=== PATIENT | male | born 1975 | race African-American/Black ===

== ENCOUNTER 2019-05-29 02:25 | Emergency (ER) | payer OTHER ==
[2019-05-29 02:34] VITALS: BP 143/95; PULSE 73; TEMP 98.2; BMI 26.4
[2019-05-29] MEDS ORDERED: IBUPROFEN 600 MG TABLET (FP) PO ONE ×2 (02:35→02:36)
--- NOTE | 2019-05-29 02:38 | PDOC ---
History of Present Illness - General Chief Complaint: Pain, Acute Stated Complaint: INJURY LEFT ANKLE WHILE WORKING Time Seen by Provider: 05/29/19 02:33 History Source: Patient Exam Limitations: No Limitations - History of Present Illness Initial Comments: 05/29/19 02:33 This is a 43-year-old male who comes in complaining of pain in his left ankle patient works as a security escort at [employer]. Patient said he was at work when he tripped and fell. Patient's complaining of pain in his left lateral ankle secondary to twisting the ankle. Allergies: as per nursing notes Past Medical History: none Social history: Lives with family. No smoking. No alcohol. No illicit drugs. Surgical history: None General: No fevers or chills, no weakness, no weight loss HEENT: No change in vision. No sore throat,. No ear pain CardioVascular: no chest discomfort. No shortness of breath Respiratory:No cough, or wheezing. Gastrointestinal: no nausea, vomiting, diarrhea or constipation, No rectal bleeding Genitourinary: No dysuria, hematuria, or frequency Musculoskeletal: Left ankle injury Neurologic: No headache, vertigo, dizziness or loss of consciousness Psychiatric: nor depression Skin: No rashes or easy bruising Endocrine: no increased thirst or abnormal weight change Allergic: no skin or latex allergy All other systems reviewed and normal GENERAL: The patient is awake, alert, and fully oriented, in no acute distress. HEAD: Normal with no signs of trauma. EYES: Pupils equal, round and reactive to light, extraocular movements intact, sclera anicteric, conjunctiva clear. EXTREMITIES: Left ankle: There is moderate swelling to the lateral and posterior portion of the ankle with tenderness on palpation of the lateral and posterior malleolus. there is no tenderness on palpation the base of the fifth metatarsal or any other bony structures of the foot. Neurovascular is intact. NEUROLOGICAL: Antalgic gait, normal speech PSYCH: Normal mood, normal affect. SKIN: Warm, Dry, normal turgor, no rashes or lesions noted. Assessment and plan: This 43-year-old male who comes in complaining of pain to his left ankle post twisting his ankle. X-ray did show a fracture of the posterior malleolus that was moderately displaced. Patient given posterior OCL splint, crutches and orthopedic follow-up. Patient discharged home. Past History - Past Medical History Allergies/Adverse Reactions: Allergies Allergy/AdvReac Type Severity Reaction Status Date / Time No Known Allergies Allergy Verified 05/29/19 02:27 Home Medications: Ambulatory Orders NK [No Known Home Medication] 05/29/19 COPD: No Other medical history: DENIES - Suicide/Smoking/Psychosocial Hx Smoking History: Never smoked Have you smoked in the past 12 months: No Information on smoking cessation initiated: No Hx Alcohol Use: No Drug/Substance Use Hx: No *Physical Exam - Vital Signs Last Vital Signs Temp Pulse Resp BP Pulse Ox 98.2 F 73 16 143/95 100 05/29/19 02:28 05/29/19 02:28 05/29/19 02:28 05/29/19 02:28 05/29/19 02:28 *DC/Admit/Observation/Transfer Diagnosis at time of Disposition: Fracture of posterior malleolus of left tibia Qualifiers: Encounter type: initial encounter Fracture type: closed Qualified Code(s): S82.392A - Other fracture of lower end of left tibia, initial encounter for closed fracture - Discharge Dispostion Disposition: HOME Condition at time of disposition: Stable Decision to Admit order: No - Referrals Referrals: Sadi Balderrama MD [Staff Physician] - - Patient Instructions Additional Instructions: Leave the splint on until you see the orthopedist. Keep it dry. Take ibuprofen or Aleve as needed for the pain and instructed on the bottle. Wear the [place] wrap keep it iced and elevated as much as possible. Call the orthopedist in the morning. And get an appointment Return to the emergency department immediately with ANY new, persistent or worsening symptoms. Continue any medications as previously prescribed by your physician. You should follow up with your primary doctor as soon as possible regarding today's emergency department visit. . Please make sure your doctor reviews the results of your emergency evaluation. Thank you for coming to the Emergency Department today for your care. It was a pleasure to see you today. Please note that your evaluation is INCOMPLETE until you follow-up with your doctor. - Post Discharge Activity Forms/Work/School Notes: Back to Work
== END 2019-05-29 03:15 | disposition home or self-care (01) ==
LOC: FER 02:25
DX: S82.392A Other fracture of lower end of left tibia, initial encounter for closed fracture (principal); X58.XXXA Exposure to other specified factors, initial encounter; Y93.89 Activity, other specified; Y92.214 College as the place of occurrence of the external cause; Y99.0 Civilian activity done for income or pay
CPT/HCPCS: 73610-TC-LT-FY; 99281-25

== ENCOUNTER 2019-06-06 05:06 | Day surgery (SDC) | payer OTHER | END 2019-06-06 16:30 | disposition home or self-care (01) | LOC: JASU-SURG 05:06 ==

== ENCOUNTER 2022-01-07 07:48 | Emergency (ER) | payer OTHER ==
[2022-01-07 07:52] VITALS: TEMP 98.4; BMI 25.7
[2022-01-07 08:23] LABS: ALBUMIN 4.1 g/dl (3.4-5.0); BILIRUBIN,TOTAL 0.9 mg/dl (0.2-1); CALCIUM 9.4 mg/dl (8.5-10); CREATININE 1.2 mg/dl (0.55-1.3); TOT PROT 7.3 g/dl (6.4-8.2)
[2022-01-07 09:07] LABS: EPITHELIAL CELLS FEW /hpf
[2022-01-07 09:08] LABS: AMORP PHOS 3+ /hpf (NONE SEEN)
[2022-01-07 09:41] LABS: BASO % 0.8 % (0-2.0); EOS % 1.6 % (0-4.5); HEMATOCRIT 43.4 % (35.4-49); HEMOGLOBIN 13.4 GM/dL (11.7-16.9); MCH 21.9 pg (25.7-33.7); MCHC 30.9 g/dl (32.0-35.9); MEAN CELL VOLUME 70.9 fl (80-96); MEAN PLT VOLUME 9.3 fl (7.5-11.1); MONO % 9.6 % (3.8-10.2); PLATELET COUNT 289 10^3/uL (134-434); RBC 6.12 M/mm3 (4.00-5.60); RDW 14.6 % (11.9-15.9); WHITE BLOOD COUNT 4.7 K/mm3 (4.0-10.0)
[2022-01-07] MEDS ORDERED: KETOROLAC TROMETHAMINE 15 MG/ML VIAL IVPUSH ONE (09:41)
[2022-01-07] MEDS ORDERED: KETOROLAC TROMETHAMINE 15 MG/ML VIAL ONE (09:44)
[2022-01-07 10:27] LABS: ANISOCYTOSIS 1+; MACROCYTOSIS 1+; PLATELET ESTIMATE NORMAL
[2022-01-07] MEDS ORDERED: SODIUM CHLORIDE 1,000 ML IV STA (11:44)
[2022-01-07 11:51] VITALS: BP 143/72; PULSE 75
== END 2022-01-07 12:14 | disposition home or self-care (01) ==
LOC: FER 07:48
PROC: 3E033GC Introduction of Other Therapeutic Substance into Peripheral Vein, Percutaneous Approach (ICD-10-PCS; principal; 2022-01-07)
DX: N20.1 Calculus of ureter (principal)
CPT/HCPCS: 36415; 74176-TC; 80053; 81003; 81015; 85025; 99284-25